=== PATIENT | male | born 1985 | race American Indian/Alaskan Native ===

== ENCOUNTER 2018-03-25 02:16 | Emergency (ER) | payer SELFPAY ==
[2018-03-25] MEDS ORDERED: XYLOCAINE 2%/EPI 1:100,000 INFILTRATI ONE (02:52)
[2018-03-25] MEDS ORDERED: XYLOCAINE 1%/ EPI 1:100,000 INFILTRATI ONE (02:53)
--- NOTE | 2018-03-25 04:27 | Cat Scan Report ---
FINAL REPORT EXAM: CT HEAD/BRAIN WO CON HISTORY: head injury TECHNIQUE: CT imaging acquired through the head without intravenous contrast. Transaxial reformations are provided. PRIORS: None. FINDINGS: The ventricles, cisterns and sulci are normal. No intraparenchymal or extra-axial mass, hemorrhage, or mass effect. Wilkinson and white-matter differentiation is within normal limits. The examination is partially compromised by streak artifact associated with patient's earrings. Normal spherical shape of the globes. Left frontal scalp injury with subcutaneous emphysema and overlying bandaging. Mucosal thickening in the ethmoid air cells. Hypoplastic mastoids with fluid but no evident erosion or overlying soft tissue abnormality. Remaining imaged paranasal sinuses are without significant abnormality. No skull or facial fracture visualized. IMPRESSION: No acute intracranial abnormality. Left frontal scalp injury without associated skull fracture.
[2018-03-25] MEDS ORDERED: NACL 0.9% 500 ML IR ONE (04:37)
[2018-03-25] MEDS ORDERED: XYLOCAINE 1% MPF 5 mL ONE ×2 (04:39→04:41)
[2018-03-25] MEDS ORDERED: TRIPLE ANTIBIOTIC TP ONE (04:58)
[2018-03-25] MEDS ORDERED: HALDOL IM PRN (05:04)
[2018-03-25] MEDS ORDERED: BOOSTRIX IM ONE (05:04)
[2018-03-25] MEDS ORDERED: ATIVAN IM PRN (05:04)
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
[2018-03-25 05:21] VITALS: BP 176/116
[2018-03-25] MEDS ORDERED: XYLOCAINE 1% MPF 5 mL INFILTRATI ONE (05:26)
[2018-03-25] MEDS ORDERED: ANTIBIOTIC OINT TP ONE (05:27)
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
[2018-03-25 06:08] LABS: BUN/Creatinine Ratio 10; Blood Urea Nitrogen 9 mg/dL (9-20); Calcium 8.9 mg/dL (8.4-10.2); Hemolysis Index 17
== END 2018-03-25 06:50 ==
LOC: ED 02:16
DX: S01.81XA Laceration without foreign body of other part of head, initial encounter (principal); F17.200 Nicotine dependence, unspecified, uncomplicated; Z91.013 Allergy to seafood; Y04.2XXA Assault by strike against or bumped into by another person, initial encounter; Y93.89 Activity, other specified; Y99.8 Other external cause status; Y92.89 Other specified places as the place of occurrence of the external cause
CPT/HCPCS: 12013; 36415; 70450; 72125; 80048; 82550; 83735; 90471; 90715; 99284; G0480; 80320; A6250